=== PATIENT | female | born 1950 | race Caucasian/White ===

== ENCOUNTER → 2021-10-24 | Outpatient (CLI) | payer MEDICARE ==
[2021-10-24 11:36] LABS: BASOPHILS ABSOLUTE AUTO 0.03 K/mm3 (0.00-0.23); BASOPHILS PERCENT AUTO 0 % (0-2); EOSINOPHILS ABSOLUTE AUTO 0.11 K/mm3 (0.00-0.68); EOSINOPHILS PERCENT AUTO 2 % (0-6); Hematocrit 43.9 % (33.0-51.0); Hemoglobin 15.1 g/dL (11.5-16.0); IMMATURE GRAN ABSOLUTE AUTO 0.03 K/mm3 (0.00-0.10); IMMATURE GRAN PERCENT AUTO 0 % (0-1); LYMPHOCYTES ABSOLUTE AUTO 2.18 K/mm3 (0.84-5.20); LYMPHOCYTES PERCENT AUTO 31 % (21-46); MONOCYTES PERCENT AUTO 7 % (4-13); Mean Corpuscular HGB 32.5 pg (26.0-34.0); Mean Corpuscular HGB Conc 34.4 g/dL (31.5-36.5); Mean Corpuscular Volume 95 fL (80-100); Mean Platelet Volume 11.3 fL (9.1-12.4); NEUTROPHILS ABSOLUTE AUTO 4.24 K/mm3 (1.96-9.15); NEUTROPHILS PERCENT AUTO 60 % (41-73); Platelet Count 226 K/mm3 (150-400); RDW Coefficient Variation 11.8 % (11.7-14.2); RDW Standard Deviation 40.3 fL (35.1-46.3); Red Blood Cell Count 4.64 M/mm3 (3.80-5.20); White Blood Cell Count 7.09 K/mm3 (4.00-11.30)
[2021-10-24 12:02] LABS: Albumin, Blood 4.1 g/dL (3.4-5.0); Albumin/Globulin Ratio 1.4 (0.8-1.8); Bilirubin, Total 1.2 mg/dL (0.1-1.0); Bun/Creatinine Ratio 21.7 (12.0-20.0); Calcium, Blood 9.5 mg/dL (8.5-10.1); Creatinine, Blood 1.15 mg/dL (0.40-1.00); Globulin, Blood 2.9 g/dL (2.2-4.0); Potassium, Blood 4.2 mmol/L (3.5-5.5); Thyroid Stimulating Hormone 1.057 uIU/mL (0.360-4.800)
== END | disposition home or self-care (01) ==
LOC: LAB 11:32 → LAB SHORT 11:32
PROVIDERS: Chiropractor
DX: R07.89 Other chest pain (principal); R53.83 Other fatigue; R82.79 Other abnormal findings on microbiological examination of urine
CPT/HCPCS: 80053; 84443; 84484; 85025; 85379; 87077; 87086; 87186

== ENCOUNTER 2022-09-14 23:34 | Emergency (ER) | payer MEDICARE ==
[~2022-09-14] VITALS: Ht 162.6 cm; Wt 63.5 kg
[2022-09-14] MEDS ORDERED: METO100 (23:51)
[2022-09-14] MEDS ORDERED: METO100 PO (23:52)
[2022-09-14] MEDS ORDERED: NIFE60ER PO (23:52)
[2022-09-14] MEDS ORDERED: ATORVASTATIN CA20 MG PO (23:52)
[2022-09-15] VITALS: BP 152/77
[2022-09-15] MEDS ORDERED: Mupirocin22 GM TOP
== END 2022-09-15 00:04 | disposition home or self-care (01) ==
LOC: ER 23:34
DX: S60.511A Abrasion of right hand, initial encounter (principal); S60.221A Contusion of right hand, initial encounter; W55.03XA Scratched by cat, initial encounter; Z87.891 Personal history of nicotine dependence
CPT/HCPCS: 99282

== ENCOUNTER → 2023-02-14 | Outpatient (CLI) | payer MEDICARE ==
[~2023-02-14] MED LIST: ATORVASTATIN CA20 MG PO; METO100; METO100 PO; Mupirocin22 GM TOP; NIFE60ER PO
== END | disposition home or self-care (01) ==
LOC: LAB 15:41 → LAB SHORT 15:41
DX: R39.15 Urgency of urination (principal)
CPT/HCPCS: 87086

== ENCOUNTER 2023-04-08 14:26 | Emergency (ER) | payer MEDICARE ==
[~2023-04-08] VITALS: Ht 162.6 cm; Wt 63.5 kg
[2023-04-08 14:43] VITALS: BP 153/86
[2023-04-08 15:40] LABS: Influenza A, PCR NEGATIVE (NEGATIVE); Influenza B, PCR NEGATIVE (NEGATIVE); Resp Syncytial Virus, PCR NEGATIVE (NEGATIVE)
[2023-04-08 16:11] LABS: SARS-Cov-2 (COVID-19) PCR, MMC POSITIVE (NEGATIVE)
== END 2023-04-08 15:11 | disposition home or self-care (01) ==
LOC: ER 14:26
PROVIDERS: Physician Assistant
DX: U07.1 COVID-19 (principal); I10 Essential (primary) hypertension; E78.5 Hyperlipidemia, unspecified; Z79.899 Other long term (current) drug therapy; Z87.891 Personal history of nicotine dependence
CPT/HCPCS: 0241U; 71046; 99283-25

== ENCOUNTER 2023-06-13 12:54 | Inpatient (IN) | payer MEDICARE ==
[~2023-06-13] VITALS: Ht 165.1 cm; Wt 62.5 kg
[2023-06-13 13:36] LABS: BASOPHILS ABSOLUTE AUTO 0.03 K/mm3 (0.00-0.23); BASOPHILS PERCENT AUTO 0 % (0-2); EOSINOPHILS ABSOLUTE AUTO 0.09 K/mm3 (0.00-0.68); EOSINOPHILS PERCENT AUTO 1 % (0-6); Hemoglobin 15.4 g/dL (11.5-16.0); IMMATURE GRAN ABSOLUTE AUTO 0.02 K/mm3 (0.00-0.10); IMMATURE GRAN PERCENT AUTO 0 % (0-1); LYMPHOCYTES ABSOLUTE AUTO 2.23 K/mm3 (0.84-5.20); LYMPHOCYTES PERCENT AUTO 25 % (21-46); MONOCYTES ABSOLUTE AUTO 0.64 K/mm3 (0.16-1.47); MONOCYTES PERCENT AUTO 7 % (4-13); Mean Corpuscular HGB 32.2 pg (26.0-34.0); Mean Corpuscular HGB Conc 34.2 g/dL (31.5-36.5); Mean Corpuscular Volume 94 fL (80-100); Mean Platelet Volume 12.3 fL (9.1-12.4); NEUTROPHILS ABSOLUTE AUTO 5.99 K/mm3 (1.96-9.15); NEUTROPHILS PERCENT AUTO 67 % (41-73); Platelet Count 246 K/mm3 (150-400); RDW Coefficient Variation 12.4 % (11.7-14.2); Red Blood Cell Count 4.78 M/mm3 (3.80-5.20)
[2023-06-13] MEDS ORDERED: dilTIAZem HCL 125 MG in Dextrose 5% 100 ML IV SCH (13:45)
[2023-06-13] MEDS ORDERED: Diltiazem HCl 5 MG / ML 5ML Vial IV ONE (13:45)
[2023-06-13 14:04] LABS: Albumin, Blood 3.8 g/dL (3.4-5.0); Albumin/Globulin Ratio 1.1 (0.8-1.8); Bilirubin, Total 1.1 mg/dL (0.1-1.0); Bun/Creatinine Ratio 9.9 (12.0-20.0); Calcium, Blood 9.8 mg/dL (8.5-10.1); Creatinine, Blood 1.41 mg/dL (0.40-1.00); Globulin, Blood 3.4 g/dL (2.2-4.0); Potassium, Blood 4.4 mmol/L (3.5-5.5); Total Protein, Blood 7.2 g/dL (6.4-8.2)
[2023-06-13] MEDS ORDERED: NS 1,000 ML IV SCH (15:15)
[2023-06-13] MEDS ORDERED: FLU VACC QS2023-24(6MOS UP)/PF 60 MCG/0.5 ML SYRINGE IM ONE (16:00)
[2023-06-13 17:03] VITALS: BP 125/96
[2023-06-13] MEDS ORDERED: ELIQUIS5 M2 PO (17:08)
[2023-06-13] MEDS ORDERED: THERA-D2000 UNIT PO (17:09)
[2023-06-13] MEDS ORDERED: LISI5 PO (17:09)
[2023-06-13] MEDS ORDERED: TOPROL XL200 MG PO (17:11)
--- NOTE | 2023-06-13 18:51 | NUR ---
PT ARRIVED TO [facility] APROX 1700 THIS EVENING. PT IS A&OX4 ON ARRIVAL, ABLE TO STAND AND AMBULATE FROM GURNEY TO BED. PT ORIENTED TO ROOM, CALL LIGHT, UNIT ROUTINES. PT DENIES PAIN, CHEST PAIN, OR SOB AT THIS TIME. SEE DOCUMENTED VS AND ADMISSION ASSESSMENT. PT ARRIVES ON CARDIZEM GTT @ 5GM WITH GOOD HR CONTROL AT REST, HR UP TO 140s WITH EXERTION. PT ABLE TO AMBULATE IN ROOM, SBA FOR CORD CONTROL. PT IS ABLE TO MAKE HER NEEDS KNOWN AND USE CALL LIGHT APPROPRIATELY. 2 SEC PAUSE X 1 NOTED ON TELEMETRY, PT ASYMPTOMATIC. WILL CONTINUE TO MONITOR AND GIVE REPORT TO NOC SHIFT RN.
[2023-06-13 19:18] VITALS: BP 126/79
[2023-06-13 19:20] VITALS: BP 126/79
[2023-06-13] MEDS ORDERED: Apixaban 5 MG Tab PO SCH (21:00)
[2023-06-14 00:29] VITALS: BP 134/79
[2023-06-14 00:31] VITALS: BP 134/79
[2023-06-14 04:05] VITALS: BP 114/76
[2023-06-14 04:24] LABS: BASOPHILS ABSOLUTE AUTO 0.02 K/mm3 (0.00-0.23); BASOPHILS PERCENT AUTO 0 % (0-2); EOSINOPHILS ABSOLUTE AUTO 0.25 K/mm3 (0.00-0.68); EOSINOPHILS PERCENT AUTO 2 % (0-6); Hematocrit 43.4 % (33.0-51.0); Hemoglobin 14.4 g/dL (11.5-16.0); IMMATURE GRAN ABSOLUTE AUTO 0.03 K/mm3 (0.00-0.10); IMMATURE GRAN PERCENT AUTO 0 % (0-1); LYMPHOCYTES ABSOLUTE AUTO 2.68 K/mm3 (0.84-5.20); LYMPHOCYTES PERCENT AUTO 26 % (21-46); MONOCYTES ABSOLUTE AUTO 0.79 K/mm3 (0.16-1.47); MONOCYTES PERCENT AUTO 8 % (4-13); Mean Corpuscular HGB 31.4 pg (26.0-34.0); Mean Corpuscular HGB Conc 33.2 g/dL (31.5-36.5); Mean Corpuscular Volume 95 fL (80-100); Mean Platelet Volume 12.4 fL (9.1-12.4); NEUTROPHILS ABSOLUTE AUTO 6.44 K/mm3 (1.96-9.15); NEUTROPHILS PERCENT AUTO 63 % (41-73); Platelet Count 185 K/mm3 (150-400); RDW Coefficient Variation 12.5 % (11.7-14.2); RDW Standard Deviation 43.7 fL (35.1-46.3); Red Blood Cell Count 4.59 M/mm3 (3.80-5.20); White Blood Cell Count 10.21 K/mm3 (4.00-11.30)
[2023-06-14 04:42] LABS: Magnesium, Blood 2.1 mg/dL (1.6-2.4); Phosphorus, Blood 3.4 mg/dL (2.5-4.9)
--- NOTE | 2023-06-14 06:05 | NUR ---
END OF SHIFT PT A&O X4. VSS. SPO2 > 92% ON RA. MONITOR SHOWING AFIB, HR 70s-90s W/ CARDIZEM GTT INFUSING @ 5 MG/HR UPON CARE ASSUMPTION. CARDIZEM PLACED ON STANDBY @ APPROX 0130 WHEN HR SUSTAINING 70s-80s & BOOTMAKER REPORTING PT BRIEF TOUCH DOWN TO 35 X1 JUST PRIOR TO CARDIZEM TITRATION OFF.
[2023-06-14 07:36] VITALS: BP 132/97
--- NOTE | 2023-06-14 08:39 | NUR ---
AM NOTE: PATIENT ALERT AND ORIENTED. VERY PLEASENT AND COOPERATIVE WITH CARES. IND AT BASELINE. DENIES NUMBNESS/TINGLING. MOVING ALL EXTREMITIES WNL. PERRLA, WEARING GLASSES. DENIES OVERALL PAIN. ON ROOM AIR SATING ABOVE 95%. LUNGS SOUNDING CLEAR. DENIES SOB/COUGH. EVEN AND UNLABORED RESPIRATIONS. TELE SHOWING AFIB WITH HR 70-110'S UP SHIFT REPORT AND NOW 110-130'S WHEN EATING BREAKFAST. PATIENT DENIES CHEST PAIN/PRESSURE. OCCASIONAL PALPITATIONS WITH ELEVATED HR. CARDIZEM GTT ON STANDBY UPON SHIFT REPORT. PO CARDIZEM GIVEN THIS AM ALONG WITH PO METOPROLOL. PATIENT ON PO ELIQUIS. PPP. IV SALINE LOCKED. DENIES ABDOMINAL PAIN/NAUSEA. BOWEL TONES PRESENT. EATING AND VOIDING WNL. UP TO BATHROOM WITH SBA. SKIN OVERALL C/D/I. CALL LIGHT IN REACH. PATIENT SITTING UP IN BED DRINKING TEA AT THIS TIME, DENIES NEEDS.
[2023-06-14] MEDS ORDERED: Metoprolol Succinate 50 MG TABCR PO SCH (09:00)
[2023-06-14] MEDS ORDERED: dilTIAZem HCL 120 MG CAP.CD PO SCH (09:00)
--- NOTE | 2023-06-14 09:14 | NUR ---
CONVERSION TO SR AT 0842, TELE STRIP SAVED IN CHART. DR. NARANJO NOTIFIED. NO NEW ORDERS FOR THIS RN TO PLACE.
[2023-06-14] MEDS ORDERED: CARTIA XT120 M1 PO (09:57)
--- NOTE | 2023-06-14 10:45 | NUR ---
DISCHARGE: NO ACUTE CHANGES, SEE PREVIOUS NOTES. PATIENT LEFT UNIT WITH ALL PERSONAL BELONGINGS AND DISCHARGE PACKET. NEW MEDICATIONS SENT TO [facility]. PATIENT TO FOLLOW UP WITH JB WITHIN ONE WEEK. THIS RN EDUCATED ON NEW CARDIZEM MEDICATION AND REDUCED DOSE OF LISINOPRIL. IN TO DEAF TEACHER PATIENT. IV REMOVED WNL.
== END 2023-06-14 10:36 | disposition home or self-care (01) | DRG 309 ==
LOC: ER 12:54 → PCU 16:52
PROVIDERS: Physician Assistant; ADMIT Family Medicine
DX: I48.20 Chronic atrial fibrillation, unspecified (principal); I50.32 Chronic diastolic (congestive) heart failure; N17.9 Acute kidney failure, unspecified; I11.0 Hypertensive heart disease with heart failure; E78.5 Hyperlipidemia, unspecified; Z91.011 Allergy to milk products; Z87.891 Personal history of nicotine dependence; Z79.01 Long term (current) use of anticoagulants; Z79.899 Other long term (current) drug therapy
CPT/HCPCS: 36415; 71046; 80053; 83735; 83880; 84100; 84484; 85025; 85379; 93005; 93010; 96365; 96366; 99285-25; A9270; J7030